=== PATIENT | male | born 1975 | race Two or more races ===

== ENCOUNTER → 2020-03-17 | Emergency (ER) | payer OTHER ==
[~2020-03-17] VITALS: Ht 180.3 cm; Wt 109.3 kg
[~2020-03-17] MED LIST: CIPRO500 MG; DOLOGEN CAPLET1 EACH PO; MUCINEX100 MG; NORFLEX100MG PO; ORPHENADRI30 MG/1 M1; PERCOCET 5-3251 EACH PO; TRAMADOL HCL300 MG; ULTRAM50 MG PO
== END | disposition home or self-care (01) ==
LOC: ER 04:09
DX: M75.82 Other shoulder lesions, left shoulder (principal)